=== PATIENT | male | born 1980 | race Caucasian/White ===

== ENCOUNTER 2025-06-28 11:44 | Outpatient (CLI) | payer OTHER, SELFPAY | END 2025-06-28 11:45 | disposition home or self-care (01) | PROVIDERS: PCP Family Medicine; Visit Provider Family Medicine | DX: F32.9 Major depressive disorder, single episode, unspecified (principal); F41.1 Generalized anxiety disorder; Z13.6 Encounter for screening for cardiovascular disorders | CPT/HCPCS: 80048; 80061; 82306; 84403; 84443; 85025 ==